=== PATIENT | female | born 1985 | race Caucasian/White ===

== ENCOUNTER → 2016-08-07 | Emergency (ER) | payer SELFPAY ==
[~2016-08-07] MED LIST: ONDANSETRON 4 MG/2 ML VIAL IVPUSH ONE; ONDANSETRON 4 MG/2 ML VIAL ONE; SODIUM CHLORIDE 1,000 ML IV STA; levETIRAcetam 500 MG TABLET (FP) PO ONE; morphine CARPU-JECT 4 MG/1 ML DISP.SYRIN IVPUSH ONE
[2016-08-07 19:39] VITALS: BMI 31.3
--- NOTE | 2016-08-07 20:30 | PDOC ---
History of Present Illness - General Chief Complaint: Pain, Acute Stated Complaint: PAIN, ACUTE Time Seen by Provider: 08/07/16 20:16 History Source: Patient Exam Limitations: No Limitations - History of Present Illness Travel History: No Initial Comments: 08/07/16 20:25 31yo Female patient with no significant past medical history presents to ED c/o right flank pain that began 2 weeks ago, and has progressed to right lower pelvic region. + Nausea. Denies fever, vomiting, diarrhea, urinary odor, pain, burning, urgency, frequency, or vaginal odor, discharge, bleeding, or CP, diff breathing, or any other complaints at this time. Patient reports decrease appetite and 6/10 abd/pelvic pain. LNMP: Current. Timing/Duration: reports: getting worse, changing over time Quality: reports: moderate Abdominal Pain Onset Location: reports: flank (Right) Pain Radiation: reports: RLQ Activities at Onset: reports: rest, other (Laying to Sitting positions.) Treatment Prior to Arrive: worse with: analgesics, antacids, cold pack, heat, laxative, enema, other Aggravating Factors: improves with: Movement. worse with: None, Defecation, Eating, Emotional upset, Exertion, [place], Voiding, Change in position Alleviating Factors: improves with: Change in Position. worse with: None, Belching, Shallow Breathing, Defecation, Eating, Holding Breath, Passing Gas, Rest, Voiding, Vomiting Past History - Travel Traveled outside of the country in the last 30 days: No Close contact w/someone who was outside of country & ill: No - Past Medical History Allergies/Adverse Reactions: Allergies Allergy/AdvReac Type Severity Reaction Status Date / Time No Known Allergies Allergy Verified 08/07/16 19:39 Home Medications: Ambulatory Orders Nitrofurantoin Monohyd/M-Cryst [Macrobid -] 100 mg PO BID #14 capsule 08/08/16 Oxycodone HCl/Acetaminophen [Oxycodone-Acetaminophen 5-325] 1 each PO Q6H PRN # 12 tablet MDD 4 tabs 08/08/16 - Psycho/Social/Smoking Cessation Hx Suicidal Ideation: No Smoking History: Current every day smoker Have you smoked in the past 12 months: No Number of Cigarettes Smoked Daily: 10 Information on smoking cessation initiated: No Hx Alcohol Use: No Drug/Substance Use Hx: No Abd/GI Specific PMHX - Complaint Specific PMHX Colitis: No Diverticulitis: No Gall Bladder Disease: No GERD: No Hepatitis: No Irritable Bowel Synd (IBS): No Pancreatitis: No GI Ulcer Disease: No Review of Systems - Review of Systems Able to Perform ROS?: Yes Is the patient limited Portuguese proficient: No Constitutional: No: Chills, Fever Respiratory: No: Shortness of Breath Cardiac (ROS): No: Chest Pain ABD/GI: Yes: Nausea, Other (Decreased appetite). No: Constipated, Diarrhea, Poor Appetite, Poor Fluid Intake, Rectal Bleeding, Vomiting : Yes: Flank Pain. No: Burning, Dysuria, Discharge, Frequency, Hematuria, Pain, Urgency Musculoskeletal: Yes: Back Pain. No: Muscle Pain All Other Systems: Reviewed and Negative *Physical Exam - Vital Signs Last Vital Signs Temp Pulse Resp BP Pulse Ox 98.8 F 97 H 18 153/87 98 08/07/16 19:37 08/07/16 19:37 08/07/16 19:37 08/07/16 19:37 08/07/16 19:37 - Physical Exam General Appearance: Yes: Nourished, Appropriately Dressed. No: Apparent Distress, Mild Distress, Moderate Distress, Severe Distress HEENT: positive: EOMI, ROBER, Normal ENT Inspection, Normal Voice, Symmetrical Neck: positive: Trachea midline, Normal Thyroid, Supple. negative: Tender, Rigid, Stridor Respiratory/Chest: positive: Lungs Clear, Normal Breath Sounds. negative: Chest Tender, Respiratory Distress, Accessory Muscle Use, Labored Respiration, Rapid RR, Crackles, Rhonchi, Stridor, Wheezing Cardiovascular: positive: Regular Rhythm, Regular Rate. negative: Edema, JVD, Murmur Gastrointestinal/Abdominal: positive: Normal Bowel Sounds, Soft. negative: Tender, Distended, Guarding, Rebound, Tenderness Musculoskeletal: positive: Normal Inspection. negative: CVA Tenderness, Decreased Range of Motion, Muscle Spasm Extremity: positive: Normal Capillary Refill, Normal Inspection, Normal Range of Motion. negative: Pedal Edema, Swelling, Calf Tenderness, Erythema, Inflammation Integumentary: positive: Normal Color, Dry, Warm. negative: Erythema, Hives, Rash, Swelling, Bruising Neurologic: positive: poker manager II-XII NML intact, Fully Oriented, Alert, Normal Mood/ Affect, Normal Response, Motor Strength 5/5 ED Treatment Course - LABORATORY CBC & Chemistry Diagram: 08/07/16 20:48 08/07/16 20:48 - RADIOLOGY Radiology Studies Ordered: Category Date Time Status ABDOMEN & PELVIS CT W/O CONTR [CT] Stat CT Scan 08/07/16 20:23 Ordered Medical Decision Making - Medical Decision Making 08/07/16 20:33 1. Renal Colic 2. UTI 3. Appendicitis 4. Ectopic 5. Fibroid vs Cyst Plan: IV Hydration, IV Morphine, IV Zofran. Labs: CBC, CMP, Urinalysis, HCG Qual , Urine Culture. Ct-Abd/Pelvis w/o contrast: R/o Renal Colic. *DC/Admit/Observation/Transfer Diagnosis at time of Disposition: UTI (urinary tract infection) Qualifiers: Urinary tract infection type: urethritis Qualified Code(s): N34.2 - Other urethritis - Discharge Dispostion Disposition: HOME Condition at time of disposition: Stable Admit: No - Prescriptions Prescriptions: Nitrofurantoin Monohyd/M-Cryst [Macrobid -] 100 mg PO BID #14 capsule Oxycodone HCl/Acetaminophen [Oxycodone-Acetaminophen 5-325] 1 each PO Q6H PRN # 12 tablet MDD 4 tabs PRN Reason: Severe Pain - Referrals Referrals: Eze Mary MD [Staff Physician] - - Patient Instructions Printed Discharge Instructions: DI for Pelvic Pain, DI for Urinary Tract Infection (UTI) Additional Instructions: FOLLOW UP WITH DR. MARY (INSPECT[employer]). CALL TO SCHEDULE APPOINTMENT. TAKE MEDICATIONS PRESCRIBED. DO NOT DRIVE, DRINK ALCOHOL, OR OPERATE HEAVY MACHINERY WHILE TAKING OXYCODONE. MOTRIN OF PAIN NEEDED, AND OXYCODONE FOR BREAKTHROUGH PAIN. Print Language: THAI
[2016-08-07 20:54] LABS: BASOPHIL 1.1 % (0-2.0); MCH 27.5 pg (25.7-33.7); MEAN CELL VOLUME 83.4 fl (80-96); MEAN PLT VOLUME 9.4 fl (7.5-11.1); NEUTROPHILS 65.6 % (42.8-82.8); PLATELET COUNT 215 K/MM3 (134-434); RDW 13.4 % (11.6-15.6); WHITE BLOOD COUNT 7.8 K/mm3 (4.0-10.0)
[2016-08-07 20:55] LABS: URINE APPEARANCE CLEAR; URINE BILIRUBIN NEGATIVE (NEGATIVE); URINE BLOOD 3+ (NEGATIVE); URINE COLOR LTYELLOW; URINE GLUCOSE (UA) NEGATIVE (NEGATIVE); URINE KETONE NEGATIVE (NEGATIVE); URINE LEUK ESTERASE 1+ (NEGATIVE); URINE NITRITE NEGATIVE (NEGATIVE); URINE PROTEIN 1+ (NEGATIVE); URINE UROBILINOGEN NEGATIVE E.U./dl (0.2-1.0)
[2016-08-07 21:02] LABS: URINE BACTERIA FEW /hpf (NONE SEEN); URINE MUCUS RARE; URINE RBC 3 /hpf (0-3); URINE WBC 19 /hpf (3-5)
[2016-08-07 21:26] LABS: ALBUMIN 3.9 g/dl (3.4-5.0); ALK PHOS 54 U/L (45-117); ANION GAP 7 (8-16); BILIRUBIN,TOTAL 0.2 mg/dL (0.2-1.0); CALCIUM 9.4 mg/dL (8.5-10.1); CO2 28 mmol/L (21-32); COCKROFT - GAULT 129.7015; CREATININE 0.9 mg/dL (0.55-1.02); GLUCOSE,RANDOM 165 mg/dL (74-106); SGOT/AST 21 U/L (15-37); SGPT/ALT 40 U/L (12-78); TOT PROT 7.2 g/dl (6.4-8.2)
[2016-08-08 01:01] VITALS: BP 123/76; PULSE 74; TEMP 98.5
== END | disposition home or self-care (01) ==
LOC: JER 19:31 → SUPCPDRO 19:31
PROC: 3E033GC Introduction of Other Therapeutic Substance into Peripheral Vein, Percutaneous Approach (ICD-10-PCS; principal; 2016-08-07)
DX: N34.2 Other urethritis (principal)
CPT/HCPCS: 36415; 74176-TC; 80053; 81003; 81015; 84703; 85025; 87086; 87186; 99283-25

== ENCOUNTER → 2017-02-03 | Emergency (ER) | payer OTHER ==
--- NOTE | 2017-02-03 05:29 | PDOC ---
History of Present Illness - General Stated Complaint: LOWER ABDOMEN PAIN(9 WEEKS PREG) Time Seen by Provider: 02/03/17 05:14 - History of Present Illness Initial Comments: Previously healthy 32 year old G1PO female 8 weeks by LMP of 12/02/16 presenting with RLQ abdominal pain. She states that she had this sharp RLQ 4/0-7 /10 pain since 22:00 on the night before admission that kept waking her up out of her sleep. The pain is not positional or related to food ingestion. She does have baseline nausea because of the . Denies fevers, chills, vomiting, diarrhea, vaginal discharge, dysuria, or other symptoms. She has not had an US for her but was scheduled for one next month by her toll relief operator. She is taking vitamins. 02/03/17 05:35 Past History - Past Medical History Allergies/Adverse Reactions: Allergies Allergy/AdvReac Type Severity Reaction Status Date / Time No Known Allergies Allergy Verified 08/07/16 19:39 Home Medications: Ambulatory Orders NK [No Known Home Medication] 02/03/17 - Suicide/Smoking/Psychosocial Hx Smoking History: Current every day smoker Have you smoked in the past 12 months: No Number of Cigarettes Smoked Daily: 10 Hx Alcohol Use: No Drug/Substance Use Hx: No Review of Systems - Review of Systems Constitutional: No: Chills, Diaphoresis, Fever HEENTM: No: Blurred Vision, Double Vision Respiratory: No: Cough, Orthopnea, Shortness of Breath Cardiac (ROS): No: Chest Pain ABD/GI: Yes: Nausea. No: Constipated, Diarrhea : No: Burning, Dysuria, Discharge, Frequency Musculoskeletal: No: Muscle Pain, Muscle Weakness Integumentary: No: Bruising, Change in Color, Erythema, Flushing, Lesions, Rash Neurological: No: Headache, Numbness *Physical Exam - Physical Exam General Appearance: Yes: Nourished, Appropriately Dressed. No: Apparent Distress HEENT: positive: EOMI, ROBER, Normal ENT Inspection, Normal Voice Neck: positive: Trachea midline, Normal Thyroid, Supple. negative: Tender, Rigid Respiratory/Chest: positive: Lungs Clear, Normal Breath Sounds. negative: Chest Tender, Respiratory Distress Cardiovascular: positive: Regular Rhythm, Regular Rate. negative: Murmur Gastrointestinal/Abdominal: positive: Normal Bowel Sounds, Soft, Protuberent. negative: Tender Musculoskeletal: positive: Normal Inspection. negative: CVA Tenderness Extremity: positive: Normal Capillary Refill, Normal Inspection, Normal Range of Motion Integumentary: positive: Normal Color, Dry, Warm Neurologic: positive: bar back II-XII NML intact, Fully Oriented, Alert, Normal Mood/ Affect, Normal Response, Motor Strength 5/5 Medical Decision Making - Medical Decision Making 32 year old female without confirmed on US but 8 weeks by LMP presenting with RLQ abdominal pain without vaginal discharge. There is a need to rule out ectopic vs iup. Other abdominal pathology is less likely given there is no TTP. Will get basic labs, UA, and TVUS. 02/03/17 05:44 Patient signed out to Dr. Ford in stable condition pending labs and TVUS. 02/03/17 07:04 *DC/Admit/Observation/Transfer Diagnosis at time of Disposition: Qualifiers: Weeks of gestation: 9 weeks Qualified Code(s): Z3A.09 - 9 weeks gestation of - Referrals - Patient Instructions - Post Discharge Activity
--- NOTE | 2017-02-03 06:22 | PDOC ---
Attending Attestation - Resident Resident Name: Alhaji Nguyen - ED Attending Attestation I have performed the following: I have examined & evaluated the patient, The case was reviewed & discussed with the resident, I agree w/resident's findings & plan - HPI HPI: 02/03/17 06:09 Pt comes with crampty abd pain in ; no vag bleed; no dysuria. Pt has a financial aid, but she hasn't had an ultrasound yet. - Physicial Exam PE: 02/03/17 06:09 Agree with resident exam - Medical Decision Making 02/04/17 06:32 Pt will be signed out to the day team.
[2017-02-03 06:30] VITALS: BP 124/81; PULSE 69; TEMP 97.6; BMI 39.4
[2017-02-03 06:39] LABS: URINE APPEARANCE CLOUDY; URINE BILIRUBIN NEGATIVE (NEGATIVE); URINE BLOOD 2+ (NEGATIVE); URINE COLOR YELLOW; URINE GLUCOSE (UA) NEGATIVE (NEGATIVE); URINE KETONE NEGATIVE (NEGATIVE); URINE NITRITE NEGATIVE (NEGATIVE); URINE PROTEIN NEGATIVE (NEGATIVE); URINE UROBILINOGEN NEGATIVE mg/dL (0.2-1.0)
[2017-02-03 07:14] LABS: BASOPHIL 0.8 % (0-2.0); EOSINOPHIL 1.6 % (0-4.5); MCH 27.2 pg (25.7-33.7); MCHC 33.4 g/dl (32.0-36.0); MEAN CELL VOLUME 81.6 fl (80-96); MEAN PLT VOLUME 8.6 fl (7.5-11.1); NEUTROPHILS 75.2 % (42.8-82.8); PLATELET COUNT 234 K/MM3 (134-434); RDW 12.6 % (11.6-15.6); WHITE BLOOD COUNT 10.6 K/mm3 (4.0-10.0)
[2017-02-03 07:16] LABS: URINE BACTERIA RARE /hpf (NONE SEEN); URINE MUCUS RARE; URINE RBC 3 /hpf (0-3); URINE WBC 5 /hpf (3-5)
--- NOTE | 2017-02-03 07:35 | PDOC ---
*Physical Exam - Vital Signs Last Vital Signs Temp Pulse Resp BP Pulse Ox 97.6 F 69 18 124/81 98 02/03/17 06:23 02/03/17 06:23 02/03/17 06:23 02/03/17 06:23 02/03/17 06:23 ED Treatment Course - LABORATORY CBC & Chemistry Diagram: 02/03/17 06:54 02/03/17 06:54 - ADDITIONAL ORDERS Additional order review: Laboratory Results 02/03/17 06:32 Urine Color Yellow Urine Appearance Cloudy Urine pH 6.0 Ur Specific [place] 1.018 Urine Protein Negative Urine Glucose (UA) Negative Urine Ketones Negative Urine Blood 2+ H Urine Nitrite Negative Urine Bilirubin Negative Urine Urobilinogen Negative Urine WBC (Auto) 5 Urine RBC (Auto) 3 Ur Epithelial Cells Many Urine Bacteria Rare Urine Mucus Rare 02/03/17 06:54 RBC 5.18 MCV 81.6 MCHC 33.4 RDW 12.6 MPV 8.6 Neutrophils % 75.2 Lymphocytes % 15.8 D Monocytes % 6.6 Eosinophils % 1.6 Basophils % 0.8 Medical Decision Making - Medical Decision Making 02/03/17 07:[address] Nguyen 02/03/17 10:25 Intrauterine 7weeks 4 days confirmed by TVUS Patient ok to be d/c *DC/Admit/Observation/Transfer Diagnosis at time of Disposition: Qualifiers: Weeks of gestation: 9 weeks Qualified Code(s): Z3A.09 - 9 weeks gestation of - Discharge Dispostion Condition at time of disposition: Improved Admit: No - Referrals - Patient Instructions - Post Discharge Activity
[2017-02-03 07:42] LABS: ALBUMIN 3.4 g/dl (3.4-5.0); ANION GAP 7 (8-16); BILIRUBIN,TOTAL 0.3 mg/dL (0.2-1.0); CALCIUM 8.4 mg/dL (8.5-10.1); CO2 26 mmol/L (21-32); CREATININE 0.6 mg/dL (0.55-1.02); GLUCOSE,RANDOM 97 mg/dL (74-106); SGOT/AST 20 U/L (15-37); SGPT/ALT 70 U/L (12-78); TOT PROT 6.5 g/dl (6.4-8.2)
[2017-02-03 07:57] LABS: ALK PHOS 65 U/L (45-117)
[2017-02-03 11:04] LABS: URINE LEUK ESTERASE Negative (NEGATIVE)
--- NOTE | 2017-02-03 15:41 | PDOC ---
*Physical Exam - Vital Signs Last Vital Signs Temp Pulse Resp BP Pulse Ox 97.6 F 69 18 124/81 98 02/03/17 06:23 02/03/17 06:23 02/03/17 06:23 02/03/17 06:23 02/03/17 06:23 ED Treatment Course - LABORATORY CBC & Chemistry Diagram: 02/03/17 06:54 02/03/17 06:54 - ADDITIONAL ORDERS Additional order review: Laboratory Results 02/03/17 02/03/17 02/03/17 06:54 06:54 06:32 Sodium 137 Potassium 4.0 Chloride 104 Carbon Dioxide 26 Anion Gap 7 L BUN 13 Creatinine 0.6 D Creat Clearance w eGFR > 60 Random Glucose 97 D Calcium 8.4 L Total Bilirubin 0.3 D AST 20 ALT 70 D Alkaline Phosphatase 65 D Total Protein 6.5 Albumin 3.4 Beta HCG, Quant 75457.2 Urine Color Yellow Urine Appearance Cloudy Urine pH 6.0 Ur Specific [place] 1.018 Urine Protein Negative Urine Glucose (UA) Negative Urine Ketones Negative Urine Blood 2+ H Urine Nitrite Negative Urine Bilirubin Negative Urine Urobilinogen Negative Ur Leukocyte Esterase Negative Urine WBC (Auto) 5 Urine RBC (Auto) 3 Ur Epithelial Cells Many Urine Bacteria Rare Urine Mucus Rare Blood Type A POSITIVE Antibody Screen Negative 02/03/17 06:54 RBC 5.18 MCV 81.6 MCHC 33.4 RDW 12.6 MPV 8.6 Neutrophils % 75.2 Lymphocytes % 15.8 D Monocytes % 6.6 Eosinophils % 1.6 Basophils % 0.8 - RADIOLOGY Radiology Studies Ordered: Category Date Time Status ABDOMEN MRI W/O CONTRAST /MRCP [MRI] Stat MRI 02/03/17 12:06 Completed Medical Decision Making - Medical Decision Making 02/03/17 15:39 Mri negative for any acute pathologies. Patient d/c *DC/Admit/Observation/Transfer Diagnosis at time of Disposition: Qualifiers: Weeks of gestation: 9 weeks Qualified Code(s): Z3A.09 - 9 weeks gestation of - Discharge Dispostion Condition at time of disposition: Improved Admit: No - Referrals - Patient Instructions Printed Discharge Instructions: DI for Abdominal Pain -- Early Additional Instructions: Follow up with your OBGYN as soon as discharged, bring the printed copies of your imaging results. Come back to the emrgency department for any new, worsening or concerning symptoms including abdominal pain or discharge, bleeding or cramping. - Post Discharge Activity
== END | disposition home or self-care (01) ==
LOC: JER 05:08
DX: O26.891 Other specified pregnancy related conditions, first trimester (principal); R10.31 Right lower quadrant pain; Z3A.01 Less than 8 weeks gestation of pregnancy
CPT/HCPCS: 36415; 74181-TC; 76817-TC; 80053; 81003; 81015; 84702; 85025; 86850; 86900; 86901; 87086; 99282-25

== ENCOUNTER 2017-02-14 04:36 | Emergency (ER) | payer OTHER ==
--- NOTE | 2017-02-14 05:04 | PDOC ---
History of Present Illness - General Exam Limitations: No Limitations - History of Present Illness Initial Comments: 02/14/17 05:47 Patient is a 32 year old female, 9 weeks , with a significant past medical history of who presents to the ED with complaints of abdominal pain that began 2 weeks ago. Patient reports beginning to experience abdominal pain suddenly 2 weeks ago while at home. She reports not being able to tolerate anything orally and has experienced nausea and vomiting. Patient states she currently is experiencing pain in her lower back, right lower quadrant and superpubic pelvic region. She reports she is unable to tolerate anything orally but is unsure if it is related to the abdominal pain. Patient has been experiencing generalized weakness and dizziness. She reports having intermittent episodes of diarrhea but states no one else around me has it so I doesn't know what might have triggered it. Patient states she received US in [place] ED on February 03 which showed she had IUP of 7 weeks and 4 days. Denies vaginal bleeding. Denies chest pain, SOB. Denies fever, chill. Denies any trauma. Denies contact with sick individual, out of state travel. Denies any other symptoms. Allergies: None Social history: No smoking. No alcohol. No illicit drugs. Surgical history: None PMD: None <Adalid Zimmer - Last Filed: 02/14/17 05:47> - General History Source: Patient <Mike Youngblood - Last Filed: 02/14/17 19:34> - General Chief Complaint: Pain, Acute Stated Complaint: ABD PAIN, 8WKS Time Seen by Provider: 02/14/17 05:01 Past History <Adalid Zimmer - Last Filed: 02/14/17 05:47> - Past Medical History Anemia: No Asthma: No Cancer: No Cardiac Disorders: No CVA: No COPD: No DVT: No Dementia: No Diabetes: No Dialysis: No GI Disorders: No Disorders: No HTN: No Hypercholesterolemia: No Kidney Stones: No Liver Disease: No Psychiatric Problems: No Seizures: No Thyroid Disease: No Lung CA: No - Surgical History Abdominal Surgery: No Appendectomy: No Cardiac Surgery: No Cholecystectomy: No Gastric Stapling: No GI Surgery: No Lung Surgery: No Neurologic Surgery: No - Immunization History Immunization Up to Date: Yes - Suicide/Smoking/Psychosocial Hx Smoking History: Current every day smoker Have you smoked in the past 12 months: No Number of Cigarettes Smoked Daily: 10 Hx Alcohol Use: No Drug/Substance Use Hx: No Substance Use Type: None <Mike Youngblood - Last Filed: 02/14/17 19:34> - Past Medical History Allergies/Adverse Reactions: Allergies Allergy/AdvReac Type Severity Reaction Status Date / Time No Known Allergies Allergy Verified 08/07/16 19:39 Home Medications: Ambulatory Orders Ondansetron [Ondansetron Odt] 8 mg PO TID PRN #10 tab.rapdis 02/14/17 Review of Systems - Review of Systems Able to Perform ROS?: Yes Comments:: 02/14/17 05:47 CONSTITUTIONAL: Absent: fever, no chills, no fatigue EYES: Absent: visual changes ENT: Absent: ear pain, no sore throat CARDIOVASCULAR: Absent: chest pain, no palpitations RESPIRATORY: Absent: cough, no SOB GI:+Abdominal pain. +nausea. +Vomiting. +Diarrhea Absent:, no constipation, GENITOURINARY: Absent: dysuria, no frequency, no hematuria MUSCULOSKELETAL: Absent: back pain, no arthralgia, no myalgia SKIN: Absent: rash All Other Systems: Reviewed and Negative <Adalid Zimmer - Last Filed: 02/14/17 05:47> *Physical Exam - Vital Signs Last Vital Signs Temp Pulse Resp BP Pulse Ox 99.4 F 86 18 115/87 98 02/14/17 05:16 02/14/17 05:16 02/14/17 05:16 02/14/17 05:16 02/14/17 05:16 - Physical Exam Comments: 02/14/17 05:47 GENERAL: +Moderately distressed. Well-appearing, well-nourished. No apparent distress. HEENT: +Mucosa appears dry. Normocephalic, atraumatic. PERRL, EOM intact. CARDIOVASCULAR: Normal S1, S2. Regular rate and rhythm. PULMONARY: Clear to auscultation bilaterally. ABDOMEN: +Mild tenderness throughout, mainly in superpubic region. Soft, non-distended, non-tender. EXTREMITIES: Normal ROM in all four extremities. No gross deformities. SKIN: Warm, dry. No rash NEUROLOGICAL: No focal neurological deficits <Adalid Zimmer - Last Filed: 02/14/17 05:47> ED Treatment Course - LABORATORY CBC & Chemistry Diagram: 02/14/17 05:45 02/14/17 05:45 <Mike Youngblood - Last Filed: 02/14/17 19:34> Medical Decision Making - Medical Decision Making 02/14/17 19:34 Dr. Youngblood: The scribe's documentation has been prepared under my direction and personally reviewed by me in its entirery. I confirm that the note above accurately reflects all work, treatment, procedures, and medical decision making performed by me. <Mike Youngblood - Last Filed: 02/14/17 19:34> *DC/Admit/Observation/Transfer - Attestations Scribe Attestion: 02/14/17 05:48 Documentation prepared by Adalid Zimmer, acting as center medical director for Mike Youngblood MD/DO. <Adalid Zimmer - Last Filed: 02/14/17 05:47> <Mike Youngblood - Last Filed: 02/14/17 19:34> Diagnosis at time of Disposition: demise - Discharge Dispostion Disposition: HOME Condition at time of disposition: Stable - Prescriptions Prescriptions: Ondansetron [Ondansetron Odt] 8 mg PO TID PRN #10 tab.rapdis PRN Reason: Nausea And/Or Vomiting - Referrals Referrals: Angelica Hinojosa [Other] Jonnie Gross MD [Staff Physician] - - Patient Instructions Printed Discharge Instructions: DI for Miscarriage Additional Instructions: Please make an appointment to see you labor/excavator in 1-2 days. Please have your lab work repeated in 1-2 days. Please return to the ED with worsening pain, heavy vaginal bleeding. Please return to the ED with any further concerns.
[2017-02-14] MEDS ORDERED: SODIUM CHLORIDE 1,000 ML IV STA ×2 (05:07→05:08)
[2017-02-14] MEDS ORDERED: METOCLOPRAMIDE HCL INJECTION 10 MG/2 ML VIAL IVPUSH ONE (05:07)
[2017-02-14] MEDS ORDERED: PANTOPRAZOLE SODIUM 40 MG in SODIUM CHLORIDE 100 ML IVPB ONE (05:21)
[2017-02-14] MEDS ORDERED: METOCLOPRAMIDE HCL INJECTION 10 MG/2 ML VIAL ONE (05:38)
[2017-02-14] MEDS ORDERED: PANTOPRAZOLE SODIUM 40 MG/100 ML BAG IVPB ONE (05:38)
[2017-02-14 05:39] VITALS: BMI 38.9
[2017-02-14 06:14] LABS: BASOPHIL 0.5 % (0-2.0); EOSINOPHIL 0.6 % (0-4.5); MCH 27.1 pg (25.7-33.7); MCHC 33.3 g/dl (32.0-36.0); MEAN CELL VOLUME 81.2 fl (80-96); MEAN PLT VOLUME 8.7 fl (7.5-11.1); NEUTROPHILS 91.2 % (42.8-82.8); PLATELET COUNT 264 K/MM3 (134-434); RDW 12.8 % (11.6-15.6); WHITE BLOOD COUNT 15.3 K/mm3 (4.0-10.0)
[2017-02-14 06:15] LABS: URINE APPEARANCE CLOUDY; URINE BILIRUBIN NEGATIVE (NEGATIVE); URINE BLOOD 3+ (NEGATIVE); URINE COLOR DKYELLOW; URINE GLUCOSE (UA) NEGATIVE (NEGATIVE); URINE KETONE TRACE (NEGATIVE); URINE NITRITE NEGATIVE (NEGATIVE); URINE UROBILINOGEN NEGATIVE mg/dL (0.2-1.0)
[2017-02-14 06:19] LABS: URINE PROTEIN 1+ (NEGATIVE)
[2017-02-14 06:22] LABS: URINE MUCUS FEW; URINE RBC 7 /hpf (0-3); URINE WBC 8 /hpf (3-5)
[2017-02-14 06:26] LABS: INR 1.01 (0.82-1.09); PROTHROMBIN TIME (PATIENT) 11.4 SEC (9.98-11.88)
[2017-02-14 06:36] LABS: ALBUMIN 3.5 g/dl (3.4-5.0); ANION GAP 14 (8-16); BILIRUBIN,TOTAL 0.4 mg/dL (0.2-1.0); CALCIUM 8.7 mg/dL (8.5-10.1); CO2 19 mmol/L (21-32); CREATININE 0.6 mg/dL (0.55-1.02); GLUCOSE,RANDOM 125 mg/dL (74-106); MAGNESIUM 1.6 mg/dL (1.8-2.4); SGOT/AST 14 U/L (15-37); SGPT/ALT 49 U/L (12-78); TOT PROT 7.1 g/dl (6.4-8.2)
[2017-02-14 06:51] LABS: ALK PHOS 67 U/L (45-117)
[2017-02-14 07:00] VITALS: TEMP 98.9
[2017-02-14] MEDS ORDERED: MAGNESIUM SULF 50% (8.12 MEQ/2 ML-1 GM VIAL) IVPB ONE (07:11)
--- NOTE | 2017-02-14 08:13 | PDOC ---
*Physical Exam - Vital Signs Last Vital Signs Temp Pulse Resp BP Pulse Ox 98.9 F 95 H 18 114/60 96 02/14/17 06:58 02/14/17 06:58 02/14/17 05:16 02/14/17 06:58 02/14/17 06:58 - Physical Exam Comments: 02/14/17 08:07 gen: aaox3, resting comfortably heart: +s1s2 reg lungs: cta b/l abd: soft, nt/nd +bs ext: no c/c/e neuro: cn ii-xii grossly intact, no focal deficits ED Treatment Course - LABORATORY CBC & Chemistry Diagram: 02/14/17 05:45 02/14/17 05:45 - ADDITIONAL ORDERS Additional order review: Laboratory Results 02/14/17 02/14/17 02/14/17 05:45 05:45 05:45 PT with INR 11.40 INR 1.01 Sodium 136 Potassium 4.0 Chloride 103 Carbon Dioxide 19 L D Anion Gap 14 BUN 14 Creatinine 0.6 Creat Clearance w eGFR > 60 Random Glucose 125 H D Calcium 8.7 Magnesium 1.6 L Total Bilirubin 0.4 D AST 14 L D ALT 49 D Alkaline Phosphatase 67 Total Protein 7.1 Albumin 3.5 Beta HCG, Quant 99225.5 Urine Color [place] Urine Appearance Cloudy Urine pH 5.0 Ur Specific [place] 1.025 Urine Protein 1+ H Urine Glucose (UA) Negative Urine Ketones Trace H Urine Blood 3+ H Urine Nitrite Negative Urine Bilirubin Negative Urine Urobilinogen Negative Urine WBC (Auto) 8 Urine RBC (Auto) 7 Ur Epithelial Cells Many Urine Mucus Few 02/14/17 05:45 RBC 5.02 MCV 81.2 MCHC 33.3 RDW 12.8 MPV 8.7 Neutrophils % 91.2 H D Lymphocytes % 3.0 L D Monocytes % 4.7 Eosinophils % 0.6 Basophils % 0.5 - Medications Given in the ED: ED Medications Discontinued Medications Generic Name Dose Route Start Last Admin Trade Name Freq PRN Reason Stop Dose Admin Sodium Chloride 1,000 mls @ 1,000 mls/hr 02/14/17 05:07 02/14/17 05:53 Normal Saline - IV 02/14/17 06:06 1,000 mls/hr ASDIR STA Administration Sodium Chloride 1,000 mls @ 1,000 mls/hr 02/14/17 05:08 02/14/17 06:05 Normal Saline - IV 02/14/17 06:07 1,000 mls/hr ASDIR STA Administration Pantoprazole Sodium 40 mg/ 100 mls @ 200 mls/hr 02/14/17 05:21 02/14/17 05:53 Sodium Chloride IVPB 02/14/17 05:50 200 mls/hr ONCE ONE Administration Metoclopramide HCl 10 mg 02/14/17 05:07 02/14/17 05:53 Reglan Injection - IVPUSH 02/14/17 05:08 10 mg ONCE ONE Administration Medical Decision Making - Medical Decision Making 02/14/17 08:13 a/p: 32yo female with n/v/d and -signed out pending labs and ultrasound -mag slightly low -will replace -pt pending pelvic ob u/s -nausea controlled -no vomiting since being medicated -will continue to monitor and reassess -no vaginal bleeding -appt with [facility] Dr. Dominguez on 02/2802/14/17 10:16 pt with demise on ultrasound. discussed lab and imaging results with the patient. discussed need for follow up with her real estate utilization officer in 2 days for repeat labs and repeat exam discussed expectant management with the patient. 02/14/17 10:25 answered all questions. Pt stable for d/c to home. Discussed in detail all reasons to return to the ED. Pt stable for d/c to home. *DC/Admit/Observation/Transfer Diagnosis at time of Disposition: demise - Discharge Dispostion Disposition: HOME Condition at time of disposition: Stable Admit: No - Prescriptions Prescriptions: Ondansetron [Ondansetron Odt] 8 mg PO TID PRN #10 tab.rapdis PRN Reason: Nausea And/Or Vomiting - Referrals Referrals: Jonnie Gross MD [Staff Physician] - Angelica Hinojosa [Other] - Patient Instructions Printed Discharge Instructions: DI for Miscarriage Additional Instructions: Please make an appointment to see you real estate utilization officer in 1-2 days. Please have your lab work repeated in 1-2 days. Please return to the ED with worsening pain, heavy vaginal bleeding. Please return to the ED with any further concerns. - Post Discharge Activity
[2017-02-14 10:48] VITALS: BP 123/68; PULSE 89
[2017-02-14 12:27] LABS: URINE LEUK ESTERASE Negative (NEGATIVE)
== END 2017-02-14 10:54 | disposition home or self-care (01) ==
LOC: JER 04:36
PROC: 3E0337Z Introduction of Electrolytic and Water Balance Substance into Peripheral Vein, Percutaneous Approach (ICD-10-PCS; principal; 2017-02-14)
PROC: 3E033GC Introduction of Other Therapeutic Substance into Peripheral Vein, Percutaneous Approach (ICD-10-PCS; 2017-02-14)
PROC: 3E033GC Introduction of Other Therapeutic Substance into Peripheral Vein, Percutaneous Approach (ICD-10-PCS; 2017-02-14)
PROC: 3E033GC Introduction of Other Therapeutic Substance into Peripheral Vein, Percutaneous Approach (ICD-10-PCS; 2017-02-14)
DX: O26.891 Other specified pregnancy related conditions, first trimester (principal); O02.1 Missed abortion; Z3A.09 9 weeks gestation of pregnancy
CPT/HCPCS: 36415; 76801-TC; 76817-TC; 80053; 81003; 81015; 83735; 84702; 85025; 85610; 96361; 96365; 96375; 99285-25

== ENCOUNTER 2017-02-16 22:29 | Emergency (ER) | payer OTHER ==
--- NOTE | 2017-02-16 22:44 | PDOC ---
History of Present Illness - General Stated Complaint: VAGINAL BLEED History Source: Patient, Family Exam Limitations: No Limitations - History of Present Illness Initial Comments: This is a 32 YOF who is who presents to the ED c/o lower abdominal/vaginal cramping during miscarriage. She was seen here in the ED two days ago for vaginal bleeding during 8 wk gestation , had an ultrasound suggesting demise, and wanted expectant management. She was prescribed misoprostol and instructed to follow up with her [facility] doctor, which she states today that she did. She placed the first four vaginal misoprostol pills at 8 pm tonight and shortly after had an onset of severe lower abdominal and vaginal cramping. She denies any passage of blood, clots, discharge, or other material. EMS notes that her blood pressure was 166/94 on scene. The patient endorses nausea, sweats , and lightheadedness, but denies any chest pain, SOB, dysuria, fever, chills, or other symptoms. Past History - Past Medical History Allergies/Adverse Reactions: Allergies Allergy/AdvReac Type Severity Reaction Status Date / Time No Known Allergies Allergy Verified 02/16/17 22:57 Home Medications: Ambulatory Orders Ondansetron [Ondansetron Odt] 8 mg PO TID PRN #10 tab.rapdis 02/14/17 Oxycodone HCl/Acetaminophen [Percocet 5-325 mg Tablet] 1 tab PO Q6H PRN #10 tablet MDD 4 tabs 02/17/17 Anemia: No Asthma: No Cancer: No Cardiac Disorders: No CVA: No COPD: No DVT: No Dementia: No Diabetes: No Dialysis: No GI Disorders: No Disorders: No HTN: No Hypercholesterolemia: No Kidney Stones: No Liver Disease: No Psychiatric Problems: No Seizures: No Thyroid Disease: No Lung CA: No - Surgical History Abdominal Surgery: No Appendectomy: No Cardiac Surgery: No Cholecystectomy: No Gastric Stapling: No GI Surgery: No Lung Surgery: No Neurologic Surgery: No - Reproductive History (#): 1 Para: 0 Therapeutic (s) & number: No - Immunization History Immunization Up to Date: Yes - Suicide/Smoking/Psychosocial Hx Smoking History: Current every day smoker Have you smoked in the past 12 months: No Number of Cigarettes Smoked Daily: 10 If you are a former smoker, when did you quit?: 1 month ago Hx Alcohol Use: No Drug/Substance Use Hx: No Substance Use Type: None Abd/GI Specific PMHX - Complaint Specific PMHX Colitis: No Diverticulitis: No Gall Bladder Disease: No GERD: No Hepatitis: No Irritable Bowel Synd (IBS): No Pancreatitis: No GI Ulcer Disease: No Review of Systems - Review of Systems Able to Perform ROS?: Yes Constitutional: No: Chills, Fever, Unexplained wgt Loss HEENTM: No: Nose Congestion, Throat Pain Respiratory: No: Cough, Shortness of Breath Cardiac (ROS): No: Chest Pain, Palpitations ABD/GI: Yes: Other (lower abdominal pain). No: Constipated, Diarrhea, Nausea, Vomiting : Yes: Other (vaginal pain). No: Burning, Dysuria Musculoskeletal: No: Back Pain, Neck Pain Integumentary: No: Bruising, Rash Neurological: No: Headache, Numbness, Tingling, Weakness, Dizziness Endocrine: No: Unexplained Weight Gain, Unexplained Weight Loss *Physical Exam - Physical Exam General Appearance: Yes: Nourished, Appropriately Dressed, Moderate Distress, Obese, Other (moaning in discomfort, intermittently diaphoretic, appears slightly pale, answering questions appropriately, accompanied by family members) HEENT: positive: EOMI, ROBER, Normal Voice, Hearing Grossly Normal. negative: Scleral Icterus (R), Scleral Icterus (L), Nasal Congestion Neck: positive: Trachea midline, Supple. negative: Tender, Rigid Respiratory/Chest: positive: Lungs Clear, Normal Breath Sounds. negative: Respiratory Distress, Crackles, Rhonchi, Stridor, Wheezing Cardiovascular: positive: Regular Rhythm, Regular Rate. negative: Murmur Female Pelvic Exam: positive: other (white residue observed on external exam likely misoprostol, white physiologic discharge, on speculum exam os is soft but only 1mm open, small dark brown mucus plug versus clot visualized within the cervical os, no active bleeding, no clots, no products of conception noted, second dose of misoprostol is placed at the end of the exam) Gastrointestinal/Abdominal: positive: Normal Bowel Sounds, Tender (mild suprapubic tenderness), Soft. negative: Organomegaly, Pulsatile Mass, Guarding Musculoskeletal: positive: Normal Inspection. negative: Decreased Range of Motion, Vertebral Tenderness Extremity: positive: Normal Capillary Refill, Normal Inspection, Normal Range of Motion. negative: Tender, Cyanosis Integumentary: positive: Normal Color, Dry, Warm. negative: Erythema, Rash, Bruising Neurologic: positive: director of compensation II-XII NML intact, Fully Oriented, Alert, Normal Mood/ Affect, Normal Response, Motor Strength 07/14 ED Treatment Course - LABORATORY CBC & Chemistry Diagram: 02/16/17 23:05 02/16/17 23:50 Medical Decision Making - Medical Decision Making 32 YOF who is in active miscarriage at 8 wks gestation known since two days ago. Presents with suprapubic and vaginal cramping after first misoprostol dose at 8pm. On exam she is hypertensive to mid 160s systolic, moderate distress, diaphoretic intermittently. DDX IBNLT normal cramping with miscarriage, septic , UTI, etc. Ordered is CBCD, CMP, Mg, Phos, quant hCG, PT/INR, morphine, toradol, zofran, IVF. The patient had a type and screen two days ago at her ED visit and is A positive. 02/17/17 00:31 On pelvic exam os is only slightly open, no products of conception. Second dose of misoprostol is placed as the patient was due at midnight. Will wait and re-assess pain level and decide if repeat pelvic is needed. 02/17/17 02:23 Patient still in moderate pain and states concerned she will need to come back to ED for pain. Ordered is a second Percocet, and a second 15 mg dose of Toradol. Will reassess pain and ensure close follow up with [facility]. Patient reported improved pain after second Percocet and Toradol. She is appropriate for discharge home with close outpatient followup with [facility] and PCP. My repeat vitals with HR wnl, RR about 16, sleeping comfortably initially. Return precautions are discussed and E-Rx for Percocet sent. *DC/Admit/Observation/Transfer Diagnosis at time of Disposition: Incomplete miscarriage - Discharge Dispostion Disposition: HOME Condition at time of disposition: Stable Admit: No - Prescriptions Prescriptions: Oxycodone HCl/Acetaminophen [Percocet 5-325 mg Tablet] 1 tab PO Q6H PRN #10 tablet MDD 4 tabs PRN Reason: Pain - Referrals - Patient Instructions Printed Discharge Instructions: DI for Miscarriage Additional Instructions: You were seen in the ER for pelvic cramping during a miscarriage. We did a pelvic exam and placed your second dose of misoprostol at the time you were due for it. We also did basic laboratory work and gave you toradol, morphine, and Percocet for pain. You are safe to go home and rest, and take pain medication for your symptoms. We are sending a prescription for Percocet to your pharmacy, and you can also take Motrin (ibuprofen). Please follow up with your [facility] doctor early next week, or you can return to the ER with any new or worsening symptoms like profuse vaginal bleeding, pain you cannot control with medications , fever, chills, passing out, or other symptoms. - Post Discharge Activity
[2017-02-16] MEDS ORDERED: KETOROLAC TROMETHAMINE 30 MG/1 ML VIAL IVPUSH ONE (22:47)
[2017-02-16] MEDS ORDERED: morphine CARPU-JECT 4 MG/1 ML DISP.SYRIN IVPUSH ONE (22:47)
[2017-02-16 22:59] VITALS: BP 161/75; PULSE 68; TEMP 97.5; BMI 38.2
[2017-02-16] MEDS ORDERED: ONDANSETRON 4 MG/2 ML VIAL IVPUSH ONE (23:08)
[2017-02-16 23:28] LABS: BASOPHIL 0.7 % (0-2.0); MCH 27.2 pg (25.7-33.7); MCHC 33.6 g/dl (32.0-36.0); MEAN PLT VOLUME 8.8 fl (7.5-11.1); NEUTROPHILS 75.2 % (42.8-82.8); PLATELET COUNT 279 K/MM3 (134-434); RDW 13.2 % (11.6-15.6); WHITE BLOOD COUNT 14.2 K/mm3 (4.0-10.0)
[2017-02-16 23:40] LABS: INR 0.97 (0.82-1.09)
[2017-02-17 01:14] LABS: ALBUMIN 3.7 g/dl (3.4-5.0); ANION GAP 15 (8-16); BILIRUBIN,TOTAL 0.3 mg/dL (0.2-1.0); CALCIUM 9.2 mg/dL (8.5-10.1); CO2 20 mmol/L (21-32); CREATININE 0.7 mg/dL (0.55-1.02); GLUCOSE,RANDOM 94 mg/dL (74-106); MAGNESIUM 1.6 mg/dL (1.8-2.4); PHOSPHOROUS 3.3 mg/dL (2.5-4.9); SGOT/AST 21 U/L (15-37); SGPT/ALT 54 U/L (12-78); TOT PROT 7.3 g/dl (6.4-8.2)
[2017-02-17 01:28] LABS: ALK PHOS 73 U/L (45-117)
--- NOTE | 2017-02-17 01:43 | PDOC ---
Attending Attestation - Resident Resident Name: SaraAriana - ED Attending Attestation I have performed the following: I have examined & evaluated the patient, The case was reviewed & discussed with the resident, I agree w/resident's findings & plan, Exceptions are as noted - HPI HPI: 02/17/17 01:40 32 F @ 8 weeks, presenting to ER with abdominal cramps. Pt was seen here 2 days ago for vaginal bleeding. Was found to have demise on TVUS and opted for expectant management. Pt was given misoprostol, which she took for the first time this evening at 8PM. Shortly after, she began to experience lower abdominal cramps. Denies any vaginal bleeding currently. Denies F/C. Endorses nausea without vomiting. Denies dysuria. - Physicial Exam PE: 02/17/17 01:42 "GENERAL: Awake, alert, and fully oriented, in no acute distress HEAD: No signs of trauma EYES: PERRLA, EOMI, sclera anicteric, conjunctiva clear ENT: Auricles normal inspection, hearing grossly normal, nares patent, oropharynx clear without exudates. Moist mucosa NECK: Nontender, no stepoffs, Normal ROM, supple, no lymphadenopathy, JVD, or masses LUNGS: Breath sounds equal, clear to auscultation bilaterally. No wheezes, and no crackles HEART: Regular rate and rhythm, normal S1 and S2, no murmurs, rubs or gallops ABDOMEN: suprapubic TTP, no rebound/guarding : Scant blood in vault, os closed, no products visualized, no CMT EXTREMITIES: Normal range of motion, no edema. No clubbing or cyanosis. No cords, erythema, or tenderness NEUROLOGICAL: Cranial nerves II through XII intact. 5/5 strength and sensation in all extremities, Normal speech, normal gait SKIN: Warm, Dry, normal turgor, no rashes or lesions noted. " - Medical Decision Making 02/17/17 01:42 32 F with abdominal cramps after taking misoprostol vaginal suppository. Likely 2/2 uterine contractions induced by misoprostol. Pt with no peritoneal signs, no evidence of uterine rupture. - Labs - Pain control 02/17/17 04:13 Pt reassessed - now with improvement in pain. Able to tolerate PO. Pt instructed to follow up with OB as soon as possible.
[2017-02-17] MEDS ORDERED: KETOROLAC TROMETHAMINE 30 MG/1 ML VIAL IVPUSH ONE (02:21)
== END 2017-02-17 04:48 | disposition home or self-care (01) ==
LOC: JER 22:29
PROC: 3E033NZ Introduction of Analgesics, Hypnotics, Sedatives into Peripheral Vein, Percutaneous Approach (ICD-10-PCS; principal; 2017-02-16)
PROC: 3E0333Z Introduction of Anti-inflammatory into Peripheral Vein, Percutaneous Approach (ICD-10-PCS; 2017-02-16)
PROC: 3E033GC Introduction of Other Therapeutic Substance into Peripheral Vein, Percutaneous Approach (ICD-10-PCS; 2017-02-16)
DX: O26.891 Other specified pregnancy related conditions, first trimester (principal); O03.4 Incomplete spontaneous abortion without complication; Z3A.08 8 weeks gestation of pregnancy
CPT/HCPCS: 36415; 80053; 83735; 84100; 84702; 85025; 85610; 96374; 96375; 99282-25

== ENCOUNTER 2020-12-28 00:42 | Emergency (ER) | payer OTHER ==
[2020-12-28 01:04] VITALS: BP 143/96; PULSE 88; TEMP 97.6; BMI 39.9
[2020-12-28 01:35] LABS: EPI CELLS 21 /uL (0-25.1); HYALINE CASTS 1 /uL (0-3.1); PH,URINE 5.5 (5.0-8.0); URINE APPEARANCE CLOUDY; URINE BACTERIA 1672 /uL (0-1359); URINE BILIRUBIN NEGATIVE (NEGATIVE); URINE COLOR YELLOW; URINE GLUCOSE (UA) NEGATIVE (NEGATIVE); URINE KETONE NEGATIVE (NEGATIVE); URINE LEUK ESTERASE 1+ (NEGATIVE); URINE NITRITE NEGATIVE (NEGATIVE); URINE PROTEIN 3+ (NEGATIVE); URINE RBC 4263 /uL (0-23.9); URINE UROBILINOGEN 0.2 mg/dL (0.2-1.0); URINE WBC 1021 /uL (0-25.8)
[2020-12-28] MEDS ORDERED: CEPHALEXIN MONOHYDRATE 500 MG CAPSULE (UD) PO ONE (02:16)
[2020-12-28] MEDS ORDERED: CEPHALEXIN MONOHYDRATE 500 MG CAPSULE (UD) ONE (02:17)
== END 2020-12-28 02:28 | disposition home or self-care (01) ==
LOC: JER 00:42
DX: N39.0 Urinary tract infection, site not specified (principal)
CPT/HCPCS: 81003; 84703; 87086; 87186; 99283-25

== ENCOUNTER 2023-07-20 17:01 | Emergency (ER) | payer OTHER ==
[2023-07-20 17:10] VITALS: BP 150/93; PULSE 83; RESP 18; TEMP 98.7; BMI 40.7
== END 2023-07-20 20:02 | disposition home or self-care (01) ==
LOC: JER 17:01 → JERFT 17:01
DX: H93.12 Tinnitus, left ear (principal); G93.2 Benign intracranial hypertension
CPT/HCPCS: 70450-TC; 99284-25

== ENCOUNTER 2024-03-27 22:55 | Emergency (ER) | payer OTHER ==
[2024-03-27 23:00] VITALS: BP 137/78; PULSE 80; RESP 20; TEMP 97.6; BMI 41.5
[2024-03-28 01:13] LABS: PH,URINE 5.5 (5.0-8.0); URINE APPEARANCE CLEAR; URINE BILIRUBIN NEGATIVE (NEGATIVE); URINE COLOR YELLOW; URINE GLUCOSE (UA) NEGATIVE (NEGATIVE); URINE KETONE NEGATIVE (NEGATIVE); URINE LEUK ESTERASE NEGATIVE (NEGATIVE); URINE NITRITE NEGATIVE (NEGATIVE); URINE PROTEIN TRACE (NEGATIVE); URINE UROBILINOGEN 0.2 mg/dL (0.2-1.0)
[2024-03-28 01:39] LABS: HCG,QUALITATIVE URINE Negative
[2024-03-28] MEDS ORDERED: KETOROLAC TROMETHAMINE 30 MG/1 ML VIAL ONE (02:09)
[2024-03-28] MEDS ORDERED: LIDOCAINE 4% PATCH TP ONE (02:10)
[2024-03-28] MEDS: KETOROLAC TROMETHAMINE 30 MG/1 ML VIAL IM ONE (02:17)
[2024-03-28] MEDS: LIDOCAINE 4% PATCH TP ONE (02:17)
[2024-03-28] MEDS ORDERED: LIDOCAINE PATCH REMOVAL MC SCH (22:00)
== END 2024-03-28 02:59 | disposition home or self-care (01) ==
LOC: JER 22:55
PROC: 3E0233Z Introduction of Anti-inflammatory into Muscle, Percutaneous Approach (ICD-10-PCS; principal; 2024-03-28)
DX: M54.50 Low back pain, unspecified (principal); R10.31 Right lower quadrant pain
CPT/HCPCS: 81003; 84703; 87086; 99284-25